=== PATIENT | male | born 1995 ===

== ENCOUNTER 2022-01-14 | Emergency (ER) | payer SELFPAY ==
[2022-01-14] MEDS ORDERED: IBUPROFEN 600 MG TAB PO ONE (02:46)
[2022-01-14] MEDS ORDERED: ONDANSETRON 4 MG ODT TAB PO ONE (02:46)
[2022-01-14] MEDS ORDERED: HYDROcodone/ACETAMINOPHEN 5-325 MG TAB PO ONE (02:46)
[2022-01-14 03:16] LABS: Basophils % (Auto) 0.6 % (0.0-1.8); Eosinophils # (Auto) 0.2 K/mm3 (0.0-0.4); Eosinophils % (Auto) 3.8 % (0.0-4.3); Hematocrit 46.8 % (35.5-45.6); Hemoglobin 15.6 gm/dl (11.8-15.2); Lymphocytes # (Auto) 2.9 K/mm3 (1.2-5.4); Mean Corpuscular HGB Conc 33 % (32-34); Mean Corpuscular Volume 91 fl (84-94); Monocytes # (Auto) 0.6 K/mm3 (0.0-0.8); Monocytes % (Auto) 10.5 % (0.0-7.3); Platelet Count 236 K/mm3 (140-440); Red Blood Count 5.15 M/mm3 (3.65-5.03); Red Cell Distribution Width 13.9 % (13.2-15.2)
[2022-01-14 03:32] LABS: Alanine Aminotransferase 32 units/L (7-56); BUN/Creatinine Ratio 12; Blood Urea Nitrogen 13 mg/dL (9-20); Calcium 9.1 mg/dL (8.4-10.2); Hemolysis Index 7
[2022-01-14] MEDS ORDERED: SODIUM CHLORIDE 0.9% 1000 ML 1,000 ML IV ONE (03:53)
--- NOTE | 2022-01-14 04:55 | Vascular Lab Report ---
DUPLEX DOPPLER LOWER EXTREMITY VEINS, BILATERAL INDICATION / CLINICAL INFORMATION: Bilateral LE pain. TECHNIQUE: Duplex doppler imaging was performed through the veins of both lower extremities using kristian ous compression and other maneuvers. COMPARISON: None available. FINDINGS: RIGHT COMMON FEMORAL VEIN: Negative. RIGHT FEMORAL VEIN: Negative. RIGHT POPLITEAL VEIN: Negative. RIGHT CALF VEINS: Negative. LEFT COMMON FEMORAL VEIN: Negative. LEFT FEMORAL VEIN: Negative. LEFT POPLITEAL VEIN: Negative. LEFT CALF VEINS: Negative. ADDITIONAL FINDINGS: None. IMPRESSION: 1. No sonographic evidence for DVT in either lower extremity. Signer Name: Ravi Rodriguez II, MD Signed: 01/14/2022 4:51 AM Workstation Name: [id number]
--- NOTE | 2022-01-14 05:21 | Emergency Department Report ---
ED Extremity Problem HPI - General Chief complaint: Extremity Injury, Lower Stated complaint: LEG AND ARM PAIN/SWELLING Source: patient Mode of arrival: Ambulatory Limitations: No Limitations - History of Present Illness Initial comments: Patient is a 26-year-old male with no past medical history who presents to the ED with complaint of acute onset persistent bilateral lower extremity pain with tingling and burning sensation for the last 1 week, worse in the last 3 days. Patient states that he is unable to sleep because of persistent pain in the lower extremities especially in the bilateral calfs. 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 Patient denies fall, traumatic injury, dizziness, syncope, chest pain or shortness of breath, fever, chills, nausea and vomiting, back pain, numbness and tingling or weakness of lower extremities bilaterally MD Complaint: extremity pain -: Sudden, week(s) (1) Location: bilateral lower extremity History of Same: No -: Yes myalgia, Yes arthralgia, No fever, No associated dyspnea, No associated chest pain Radiation: distal Severity scale (0 -10): 7 Quality: aching, sharp Consistency: constant Improves with: nothing Worsens with: weight bearing, walking, palpation Associated Symptoms: denies other symptoms, arthralgias. denies: chest pain, shortness of breath, fever, myalgias, rash - Related Data Previous Rx's Medication Instructions Recorded Last Taken Type Naproxen 500 mg PO Q12H PRN #30 tab 01/14/22 Unknown Rx methOCARBAMOL [Robaxin TAB] 750 mg PO Q8H PRN #30 tab 01/14/22 Unknown Rx traMADoL [Ultram] 50 mg PO Q6HR PRN #12 tablet 01/14/22 Unknown Rx Allergies Allergy/AdvReac Type Severity Reaction Status Date / Time diclofenac Allergy Unknown Verified 01/14/22 00:49 ED Review of Systems ROS: Stated complaint: LEG AND ARM PAIN/SWELLING Other details as noted in HPI Constitutional: denies: chills, fever Eyes: denies: eye pain, eye discharge, vision change ENT: denies: ear pain, throat pain Respiratory: denies: cough, shortness of breath, wheezing Cardiovascular: denies: chest pain, palpitations Endocrine: no symptoms reported Gastrointestinal: denies: abdominal pain, nausea, vomiting, diarrhea Genitourinary: denies: urgency, dysuria Musculoskeletal: arthralgia (Bilateral lower extremity pain). denies: back pain, joint swelling Skin: denies: rash, lesions Neurological: denies: headache, weakness, paresthesias Psychiatric: denies: anxiety, depression Hematological/Lymphatic: denies: easy bleeding, easy bruising ED Past Medical Hx - Medications Home Medications: Home Medications Medication Instructions Recorded Confirmed Last Taken Type Naproxen 500 mg PO Q12H PRN #30 tab 01/14/22 Unknown Rx methOCARBAMOL [Robaxin TAB] 750 mg PO Q8H PRN #30 tab 01/14/22 Unknown Rx traMADoL [Ultram] 50 mg PO Q6HR PRN #12 tablet 01/14/22 Unknown Rx ED Physical Exam - General Limitations: No Limitations General appearance: alert, in no apparent distress - Head Head exam: Present: atraumatic, normocephalic, normal inspection - Eye Eye exam: Present: normal appearance, PERRL, EOMI Pupils: Present: normal accommodation - ENT ENT exam: Present: normal exam, normal orophraynx, mucous membranes moist, TM's normal bilaterally, normal external ear exam - Neck Neck exam: Present: normal inspection, full ROM. Absent: tenderness - Respiratory Respiratory exam: Present: normal lung sounds bilaterally. Absent: respiratory distress, wheezes, rales, rhonchi, chest wall tenderness, accessory muscle use, decreased breath sounds, prolonged expiratory - Cardiovascular Cardiovascular Exam: Present: regular rate, normal rhythm, normal heart sounds. Absent: systolic murmur, diastolic murmur, rubs, gallop - GI/Abdominal GI/Abdominal exam: Present: soft, normal bowel sounds. Absent: tenderness, guarding, rebound, hyperactive bowel sounds, hypoactive bowel sounds, organomegaly - Extremities Exam Extremities exam: Present: normal inspection, full ROM, tenderness (Palpable josé manuel ateral calf tenderness), normal capillary refill, calf tenderness (Bilateral calf tenderness). Absent: pedal edema, joint swelling - Back Exam Back exam: Present: normal inspection, full ROM. Absent: tenderness, CVA tenderness (R), CVA tenderness (L), muscle spasm, paraspinal tenderness, vertebral tenderness - Neurological Exam Neurological exam: Present: alert, oriented X3, CN II-XII intact, normal gait, reflexes normal - Psychiatric Psychiatric exam: Present: normal affect, normal mood, anxious - Skin Skin exam: Present: warm, dry, intact, normal color. Absent: rash ED Course Vital Signs 01/14/22 00:46 Temperature 98.6 F Pulse Rate 65 Respiratory 16 Rate Blood Pressure 133/67 [Right] O2 Sat by Pulse 98 Oximetry ED Medical Decision Making - Lab Data Result diagrams: 01/14/22 02:50 01/14/22 02:50 - Radiology Data Radiology results: report reviewed, image reviewed [facility] [address] [place] [address] Vascular Lab Report Signed Patient: GIOVANA VASQUEZ MR#: [id number] 61 : 1995 Acct:[id number] Age/Sex: 26 / M ADM Date: 01/14/22 Loc: ED Attending Dr: Ordering Physician: ISMAEL DUQUE Date of Service: 01/14/22 Procedure(s): VL venous duplex LE BILAT Accession Number(s): [id number] cc: ISMAEL DUQUE DUPLEX DOPPLER LOWER EXTREMITY VEINS, BILATERAL INDICATION / CLINICAL INFORMATION: Bilateral LE pain. TECHNIQUE: Duplex doppler imaging was performed through the veins of both lower extremities using venous compression and other maneuvers. COMPARISON: None available. FINDINGS: RIGHT COMMON FEMORAL VEIN: Negative. RIGHT FEMORAL VEIN: Negative. RIGHT POPLITEAL VEIN: Negative. RIGHT CALF VEINS: Negative. LEFT COMMON FEMORAL VEIN: Negative. LEFT FEMORAL VEIN: Negative. LEFT POPLITEAL VEIN: Negative. LEFT CALF VEINS: Negative. ADDITIONAL FINDINGS: None. IMPRESSION: 1. No sonographic evidence for DVT in either lower extremity. Signer Name: Alem Gonzalez II, MD Signed: 01/14/2022 4:51 AM Workstation Name: [id number] Transcribed By: JESS Dictated By: ALEM GONZALEZ II, MD Electronically Authenticated By: ALEM GONZALEZ II, MD Signed Date/Time: 01/14/22450 DD/ 0 TD/TT: - Medical Decision Making This is a 26-year-old male with no past medical history who presents to the ED with complaint of acute onset persistent bilateral lower extremity pain with tingling and burning sensation for the last 1 week, worse in the last 3 days. Patient states that he is unable to sleep because of persistent pain in the lower extremities especially in the bilateral calfs. 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 In the ED, patient is alert and oriented x3 and is not in any distress. Patient was treated for pain in the ED. Lab test results were reviewed and showed total CK level of 936. Rest of the lab test results are nonactionable. Bilateral lower extremity Doppler ultrasound showed no sonographic evidence of DVT. Patient was also treated in the ED with normal saline 1 L IV bolus x1. On reevaluation, patient's pain is well controlled medication. Patient was discharged home on pain medications and muscle relaxants and advised to increase his water intake to improve on his pain while at work working in the construction zone. Patient was advised to follow-up with his primary care physician in 7 to 10 days for reevaluation or return to the ED immediately if symptoms get worse. - Differential Diagnosis Muscle spasm; muscle strain; DVT; rhabdomyolysis; Critical care attestation.: If time is entered above; I have spent that time in minutes in the direct care of this critically ill patient, excluding procedure time. ED Disposition Clinical Impression: Bilateral lower extremity pain, Muscle spasms of both lower extremities Muscle strain of lower extremity Qualifiers: Encounter type: initial encounter Laterality: unspecified laterality Qualified Code(s): S86.919A - Strain of unspecified muscle(s) and tendon(s) at lower leg level, unspecified leg, initial encounter Disposition: 01 HOME / SELF CARE / HOMELESS Is pt being admited?: No Does the pt Need Aspirin: No Condition: Stable Instructions: Muscle Cramps and Spasms, [id number], Muscle Strain, [id number], Leg Cramps Additional Instructions: Todos los resultados de las pruebas de laboratorio se revisaron y no son pro cesables, excepto por el nivel elevado de protena muscular que significa que necesita beber suficientes lquidos. La ecografa Doppler bilateral de las extremidades inferiores no mostr evidencia ecogrfica de TVP. Por lo tanto, tome los medicamentos con alimentos, guillermina muchos lquidos y damion un seguimiento con mcgowan mdico de atencin primaria en 7 a 10 mccracken para diego reevaluacin. Regrese al servicio de urgencias inmediatamente si los sntomas empeoran. Prescriptions: Naproxen 500 mg PO Q12H PRN #30 tab PRN Reason: Pain , Severe (7-10) methOCARBAMOL [Robaxin TAB] 750 mg PO Q8H PRN #30 tab PRN Reason: Muscle Spasm traMADoL [Ultram] 50 mg PO Q6HR PRN #12 tablet PRN Reason: Pain Referrals: PRECIOUS WILKS MD [Staff Physician] - 7-10 days Forms: Work/School Release Form(ED) Time of Disposition: 05:27 Print Language: MALIAN
[2022-01-14 05:44] VITALS: BP 136/69
== END 2022-01-14 07:07 | disposition home or self-care (01) ==
LOC: ED
DX: S86.919A Strain of unspecified muscle(s) and tendon(s) at lower leg level, unspecified leg, initial encounter (principal); M62.838 Other muscle spasm; M79.662 Pain in left lower leg; M79.661 Pain in right lower leg; X50.0XXA Overexertion from strenuous movement or load, initial encounter; Y93.89 Activity, other specified; Y92.89 Other specified places as the place of occurrence of the external cause; Y99.8 Other external cause status
CPT/HCPCS: 36415; 80053; 82550; 84484; 85025; 93970; 96360; 99284; J7030; J3490; Q0162